=== PATIENT | male | born 1990 | race Caucasian/White ===

== ENCOUNTER 2017-12-20 21:46 | Emergency (ER) | payer BC ==
[2017-12-20 22:16] VITALS: BP 160/95
--- NOTE | 2017-12-20 22:40 | UC ---
Kelsey Howard Abhishek, scribed for Octavio Mcdermott MD on 12/20/17 at 2210 . Cardiac HPI - HPI Summary HPI Summary: This patient is a 27 year old M presenting to [facility] with a chief complaint of chest pain since Wednesday (12/17/17). The pain is described as a pressure as if there is a knot according to the pt. The pt states the pain is intermittent. The patient rates the pain 3/10 in severity. Symptoms aggravated by stress. Symptoms alleviated by nothing. Patient reports nausea. Patient denies edema at the ankles, fevers, chills, and cough. Medication reviewed and allergies reviewed. - History of Current Complaint Stated Complaint: CHEST PAIN Time Seen by Provider: 12/20/17 22:00 Hx Obtained From: Patient Onset/Duration: Sudden Onset - since wednesday night (12/17/17) Initial Severity: Mild Current Severity: Mild Pain Intensity: 4 Chest Pain Location: Diffuse Aggravating Factor(s): Other - stress Alleviating Factor(s): Rest Associated Signs & Symptoms: Positive: Chest Pain, Headaches. Negative: Fever, Nausea/Vomiting, Cough, Calf Pain/Swelling - Allergy/Home Medications Allergies/Adverse Reactions: Allergies Allergy/AdvReac Type Severity Reaction Status Date / Time No Known Allergies Allergy Verified 12/20/17 22:16 Home Medications: Home Medications Xanax TAB* 0.5 mg PO PRN 12/20/17 [History] PMH/Surg Hx/FS Hx/Imm Hx GI/ History: Gastroesophageal Reflux, Other - hiatel hernia Other GI/ History: . Psychological History: Anxiety - Family History Known Family History: Positive: Hypertension Negative: Cardiac Disease - Social History Occupation: Employed Full-time Lives: Alone Alcohol Use: None Substance Use Type: None Smoking Status (MU): Never Smoked Tobacco Review of Systems Constitutional: Other - Negative fevers and chills Skin: Negative Eyes: Negative ENT: Negative Respiratory: Other - Negative cough Cardiovascular: Chest Pain - diffuse, pressure, "knot" Gastrointestinal: Nausea Genitourinary: Negative Motor: Negative Neurovascular: Negative Musculoskeletal: Other: - Negative edema at the ankles Neurological: Negative Psychological: Negative All Other Systems Reviewed And Are Negative: Yes Physical Exam Triage Information Reviewed: Yes Vital Signs: Initial Vital Signs Temp 98.4 F 01/22/18 22:00 Pulse 78 12/20/17 22:00 Resp 16 12/20/17 22:00 BP 160/95 12/20/17 22:00 Pulse Ox 100 12/20/17 22:00 Vital Signs Reviewed: Yes - Additional Comments General: well-appearing, no pain distress Skin: warm, color reflects adequate perfusion, dry Head: normal Eyes: EOMI, NICHOL ENT: normal Neck: supple, nontender Respiratory: CTA, breath sounds present Cardiovascular: RRR Abdomen: soft, nontender Bowel: present Musculoskeletal: normal, strength/ROM intact Neurological: normal, sensory/motor intact, A&O x3 Psychological: affect/mood appropriate Diagnostics - EKG Cardiac Rate: NL Cardiac Rhythm: Sinus: Normal - 2205 time: 80 bpm, lvh by voltage, st elevation V3 through V5 early repolarization Ectopy: None - Assessment/Plan Course Of Treatment: DISCUSSED FURTHER EVALUATION OF CHEST PAIN AT ED. PATIENT DECLINED AMBULANCE. - Clinical Impression Provider Diagnoses: CHEST PAIN Discharge - Discharge Plan Condition: Stable Disposition: HOME Patient Education Materials: Chest Pain (ED) Additional Instructions: GO DIRECTLY TO THE EMERGENCY DEPARTMENT FOR FURTHER EVALUATION OF YOUR CHEST PAIN. The documentation as recorded by the Kelsey melo Abhishek accurately reflects the service I personally performed and the decisions made by me, Octavio Mcdermott MD.
== END 2017-12-20 22:31 | disposition home or self-care (01) ==
LOC: UCEAST 21:46
DX: R07.89 Other chest pain (principal); R51 Headache; K21.9 Gastro-esophageal reflux disease without esophagitis; K44.9 Diaphragmatic hernia without obstruction or gangrene; F41.9 Anxiety disorder, unspecified
CPT/HCPCS: 93005; 99201; G0463